=== PATIENT | male | born 1965 ===

== ENCOUNTER 2023-07-14 16:06 | Emergency (ER) | payer OTHER ==
[~2023-07-14] VITALS: Ht 188 cm; Wt 86.8 kg
[2023-07-14 16:24] VITALS: BP 184/104; PULSE 85; RESP 18; TEMP 98.3; O2SAT 98
== END 2023-07-14 21:00 | disposition left against medical advice (07) ==
LOC: ER 16:07
DX: L03.90 Cellulitis, unspecified (principal); Z53.21 Procedure and treatment not carried out due to patient leaving prior to being seen by health care provider
CPT/HCPCS: 99281; 99283